=== PATIENT | male | born 2000 | race Caucasian/White ===

== ENCOUNTER 2019-02-19 19:17 | Inpatient (IN) | payer SELFPAY ==
[~2019-02-19] VITALS: Ht 185.4 cm; Wt 152.4 kg
[~2019-02-19 19:17] MED LIST: CLEOCIN HC150 MG/CAP PO; LEVAQUIN 750MG750 M1 PO
[2019-02-19 20:07] LABS: BASO % 0.3 % (0.0-2.0); GRAN # 8.7 (1.4-6.5); GRAN % 79.4 % (42.2-75.2); HEMATOCRIT 42.7 % (42.0-52.0); HEMOGLOBIN 14.1 g/dl (13.5-18.0); LYMPH # 1.3 (1.2-3.4); LYMPH % 11.8 % (20.0-51.0); MEAN CELL VOLUME 86 fl (80.0-100.0); MEAN CORPUSCULAR HEMOGLOBIN 29 pg (27.0-31.0); MEAN CORPUSCULAR HGB CONC 33 g/dl (33.0-37.0); MEAN PLATELET VOLUME 10.3 fl (7.4-10.4); MONO # 0.9 (0.1-0.6); PLATELET COUNT 263 K/mm3 (130-400); RED BLOOD COUNT 4.94 M/mm3 (4.20-5.60); REDCELL DISTRIBUTION WIDTH-CV 13.1 % (11.5-14.5)
[2019-02-19 20:28] LABS: CALCIUM 8.7 mg/dL (8.4-10.2); CREATININE, serum 0.87 (0.66-1.25); POTASSIUM 3.6 mmol/L (3.4-5.0)
[2019-02-19 20:43] LABS: C-REACTIVE PROTEIN 12.9 mg/dL (0.0-0.9)
[2019-02-19] MEDS ORDERED: IBU800 M1 PO (23:25)
[2019-02-19] MEDS ORDERED: TYLENOL 325MG325 MG PO (23:26)
--- NOTE | 2019-02-19 23:49 | NUR ---
PT ARRIVED VIA WHEELCHAIR WITH SOIL CONSERVATION AIDE FROM ER. PT A/O X4, AMBULATES AND GAIT IS STEADY. 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 PT ADVISED THAT HE DRINKS RED BULL AND MONSTER BUT NOT EVERY DAY. PT'S LLE IS RED, HAS EDEMA +2, WITH A SMALL OPEN AREA THAT WAS PACKED WITH PAOLA IN ER YESTERDAY. THERE IS A SMALL BLISTER ABOVE OPEN AREA. DENIES PAIN AT THIS TIME. NO NEEDS AND CALL LIGHT WITHIN REACH.
[2019-02-20] VITALS (7 sets, daily range): BP systolic 114–150; BP diastolic 62–86; PULSE 68–88; TEMP 97.9–98.7
--- NOTE | 2019-02-20 01:16 | NUR ---
PT IN BED WITH HOB ELEVATED TO 45 DEGREE ANGLE. DENIES PAIN OR DISCOMFORT AT THIS TIME. PT HAD A FRIEND BRING FOOD TO ROOM AND THEN LEFT. PT HAS IV FLUIDS RUNNING. NO NEEDS AT THIS TIME, CALL LIGHT WITHIN REACH.
[2019-02-20 04:32] LABS: CALCIUM 8.6 mg/dL (8.4-10.2); CREATININE, serum 0.81 (0.66-1.25); POTASSIUM 3.8 mmol/L (3.4-5.0)
--- NOTE | 2019-02-20 06:39 | NUR ---
[facility] [place] CONTACTED IN REFERENCE TO CONSULT.
[2019-02-20 06:56] LABS: BASO % 0.2 % (0.0-2.0); GRAN # 6.5 (1.4-6.5); GRAN % 68.5 % (42.2-75.2); HEMATOCRIT 41.5 % (42.0-52.0); HEMOGLOBIN 13.7 g/dl (13.5-18.0); LYMPH % 21.4 % (20.0-51.0); MEAN CELL VOLUME 85 fl (80.0-100.0); MEAN CORPUSCULAR HEMOGLOBIN 28 pg (27.0-31.0); MEAN CORPUSCULAR HGB CONC 33 g/dl (33.0-37.0); MEAN PLATELET VOLUME 10.3 fl (7.4-10.4); MONO # 0.9 (0.1-0.6); MONO % 9.5 % (1.7-9.3); PLATELET COUNT 262 K/mm3 (130-400); RED BLOOD COUNT 4.87 M/mm3 (4.20-5.60); REDCELL DISTRIBUTION WIDTH-CV 13.1 % (11.5-14.5)
--- NOTE | 2019-02-20 07:03 | NUR ---
UNEVENTFUL NIGHT, PT SLEPT/RESTED WELL DURING THE NIGHT. PT DID GET UP TO GO TO THE BATHROOM AND WHEN RETURNED EXAMINED LLE AGAIN AND NO CHANGE FROM EARLIER ASSESSMENT. PT'S LLE IS ELEVATED ON A PILLOW AND ADVISED PT TO ELEVATE HIS LEG TO HELP WITH THE EDEMA. PT HAS NO NEEDS AND HAS CALL LIGHT WITHIN REACH.
[2019-02-20 07:29] LABS: TRICYCLIC ANTIDEPRESS URINE NEGATIVE
--- NOTE | 2019-02-20 09:00 | NUR ---
Initial assessment completed. No pain or needs at this time. The patient's left leg is marked and appears to be improving related to redness. Will continue to monitor for change.
--- NOTE | 2019-02-20 12:26 | NUR ---
Plan to return home. SW met with patient about DC plan. Patient report that he is residing by himself and has some associates but no fmaily involvment. Patient indicated tat his sister Myra Leblanc is his EMR contact at . Patient indicated that he is local but does not have a PCP. Patient reports that he does not have a vehicle and will have a friend pick him up. Patient denies the use of any DME, or having and [facility]. Patient uses [facility] for medications. SW contact financial for self-pay statues. No additonal issues identified.
--- NOTE | 2019-02-20 19:42 | NUR ---
Site to the left lower ext. re-packed with iodoform strip gauze, following cleaning with normal saline and chloraprep. No other dressing applied. No pain with application. Report given to LAKSHMI Jennings to resume care. The patient has decreased redness to the left leg as per previously marked.
--- NOTE | 2019-02-20 20:55 | NUR ---
Shift assessment complete. Pt resting in bed, awake, a&o, cooperative c cares. Pt c/o pain c ambulating, rated "4/10"; PRN Tylenol provided per req. Pt denies any other c/o. IV s complication. LLE cellulitis noted, reddened area marked daily et receding. Pt has laceration to L crouch, approx 1" long X 1/2" wide X 1/2" deep; Iodoform dressing changed at 1900. Continued significant erythema/edema to LLE et L foot. Pt denies any further needs at this time. Call light in reach, will monitor.
[2019-02-21] VITALS: BP 138/72; PULSE 68; TEMP 98.2
--- NOTE | 2019-02-21 06:18 | NUR ---
Pt resting in bed, condition unchanged. Pt has rested well this shift c very few needs. No needs at this time. Call light in reach.
[2019-02-21 08:01] VITALS: BP 139/53; PULSE 73; TEMP 97.8
[2019-02-21 11:09] VITALS: BP 123/53; PULSE 69; TEMP 97.5
--- NOTE | 2019-02-21 14:00 | NUR ---
The left lower ext. was repacked with iodoform strip gauze at this time. Moderate amount of yellow, thick, drainage present with a mild odor. No pain with packing change. Redness to the left leg has improved. The call light is in place.
[2019-02-21 16:37] VITALS: BP 140/57; PULSE 66; TEMP 98.8
--- NOTE | 2019-02-21 18:00 | NUR ---
This patient was encourage to shower this afternoon. The site to the left lower leg was unpacked and redressed following the shower.
--- NOTE | 2019-02-21 19:10 | NUR ---
Shift assessment complete. Pt resting in bed, awake, a&o, cooperative c cares. Friend at bedside playing cares. Pt denies pain or other c/o at this time. Deep laceration noted to L crouch, small amount of purulent drainage, minimal reddness directly around lac. Laceration repacked c Iodoform at this time. Pt denies needs. Call light in reach, will monitor.
--- NOTE | 2019-02-21 19:36 | NUR ---
No change throughout the day. The call light is in place. Report given to LAKSHMI Jenninsg to resume care.
[2019-02-21 20:00] VITALS: BP 128/73; PULSE 77; TEMP 98.2
[2019-02-21 23:26] VITALS: BP 135/61; PULSE 66; TEMP 98.2
[2019-02-22 03:49] VITALS: PULSE 68; TEMP 98.7
[2019-02-22 06:18] LABS: BASO % 0.4 % (0.0-2.0); GRAN # 5.3 (1.4-6.5); HEMATOCRIT 41.8 % (42.0-52.0); HEMOGLOBIN 13.7 g/dl (13.5-18.0); LYMPH # 1.5 (1.2-3.4); LYMPH % 20.8 % (20.0-51.0); MEAN CELL VOLUME 86 fl (80.0-100.0); MEAN CORPUSCULAR HEMOGLOBIN 28 pg (27.0-31.0); MEAN CORPUSCULAR HGB CONC 33 g/dl (33.0-37.0); MEAN PLATELET VOLUME 10.2 fl (7.4-10.4); MONO # 0.5 (0.1-0.6); MONO % 6.5 % (1.7-9.3); PLATELET COUNT 271 K/mm3 (130-400); RED BLOOD COUNT 4.85 M/mm3 (4.20-5.60)
[2019-02-22 06:30] LABS: C-REACTIVE PROTEIN 3.2 mg/dL (0.0-0.9); CREATININE, serum 0.81 (0.66-1.25); POTASSIUM 3.3 mmol/L (3.4-5.0)
[2019-02-22 07:33] VITALS: BP 126/48; PULSE 64; TEMP 98.3
--- NOTE | 2019-02-22 11:05 | NUR ---
Pt alert and oriented. Pt sleeping this am but arouses easily. Pt denies pain unless walking or moving left lower extremity. Pt left crouch puncture site has julian redness noted and dressing changed per orders. Redness is decreasing on left crouch and slightly noted on left foot. Pt has call light in reach and IV intact and patent.
[2019-02-22 11:22] VITALS: BP 119/50; PULSE 61; TEMP 98.3
--- NOTE | 2019-02-22 12:37 | NUR ---
Initial visit; Patient thanked [employer] for looking in on him and offering God's blessings.
[2019-02-22] MEDS ORDERED: ZYVOX 600MG600 MG PO (13:46)
[2019-02-22] MEDS ORDERED: CIPRO 500MG TA500 MG PO (13:46)
--- NOTE | 2019-02-22 15:15 | NUR ---
Pt given discharge instructions and education on wound care dressing changes given. Pt verbalizes understanding of instructions and able to demonstrate back. Pt given wound care supplies to get him through till wound care appt that is scheduled. Pt IV discontinued and tip intact no redness or infiltration noted. Pt has all belongings and will be escorted out by aide. Pt wants to walk.
== END 2019-02-22 15:27 | disposition home or self-care (01) | DRG 605 ==
LOC: COL.ER 19:17 → MEDICAL 22:01
PROVIDERS: Nurse Practitioner Family; Physician Assistant; ADMIT Hospitalist
DX: S81.812A Laceration without foreign body, left lower leg, initial encounter (principal); L03.116 Cellulitis of left lower limb; Z68.41 Body mass index [BMI] 40.0-44.9, adult; X58.XXXA Exposure to other specified factors, initial encounter; F12.10 Cannabis abuse, uncomplicated; F10.10 Alcohol abuse, uncomplicated; Z88.0 Allergy status to penicillin; R73.9 Hyperglycemia, unspecified; B95.4 Other streptococcus as the cause of diseases classified elsewhere; E66.9 Obesity, unspecified
CPT/HCPCS: 99222-AI; 99231-AI; 99239; J1650; J1956; J3370; J7030; J7040